=== PATIENT | male | born 1980 | race Caucasian/White ===

== ENCOUNTER 2018-09-22 10:28 | Emergency (ER) | payer BC ==
[2018-09-22 10:34] VITALS: BP 156/101
[2018-09-22] MEDS ORDERED: IBUPROFEN 800 MG TABLET PO ONE (10:47)
--- NOTE | 2018-09-22 10:49 | ER Document Report ---
ED Medical Screen (RME) - General Chief Complaint: Low Back Pain Stated Complaint: BACK INJURY Time Seen by Provider: 09/22/18 10:47 Mode of Arrival: Ambulatory Information source: Patient Notes: Patient was working and a 6 x 6 board was standing on end and fell hitting his lower back. Patient with abrasions to low back area. Patient states he is unable to take any kind of narcotic and is only able to take NSAIDs for pain relief. I have greeted and performed a rapid initial assessment of this patient. A comprehensive ED assessment and evaluation of the patient, analysis of test results and completion of the medical decision making process will be conducted by additional ED providers. TRAVEL OUTSIDE OF THE [place] IN LAST 30 DAYS: No - Related Data Allergies/Adverse Reactions: "narcotics" Adverse Reaction (Uncoded 09/22/18 10:29) vomitting Past Medical History GI Medical History: Reports: Hx Gastroesophageal Reflux Disease Past Surgical History: Reports: Hx Thyroid Surgery - Immunizations Hx Diphtheria, Pertussis, Tetanus Vaccination: Yes Physical Exam - Vital signs Vitals: Temp Pulse Resp BP Pulse Ox 97.6 F 48 L 20 156/101 H 09/22/18 10:31 09/22/18 10:31 09/22/18 10:31 09/22/18 10:31 09/22/18 10:31 - Back Back: Vertebra tenderness - Lumbar midline tenderness, abrasions to lower back Course - Vital Signs Vital signs: Temp Pulse Resp BP Pulse Ox 97.6 F 84 20 156/101 H 09/22/18 10:31 09/22/18 10:35 09/22/18 10:31 09/22/18 10:31 09/22/18 10:31
--- NOTE | 2018-09-22 12:34 | RADIOLOGY REPORT (SQ) ---
EXAM DESCRIPTION: L SPINE WHOLE COMPLETED DATE/TIME: 09/22/2018 11:54 am REASON FOR STUDY: board fell on low back COMPARISON: None. NUMBER OF VIEWS: Five views including obliques. TECHNIQUE: AP, lateral, oblique, and sacral radiographic images acquired of the lumbar spine. LIMITATIONS: None. FINDINGS: MINERALIZATION: Normal. SEGMENTATION: Normal. No transitional anatomy. ALIGNMENT: Normal. VERTEBRAE: Maintained height. No fracture or worrisome bone lesion. DISCS: Very mild disc space loss height at L4-5 and L5-S1 POSTERIOR ELEMENTS: Bilateral facet arthropathy at L4-5 and L5-S1 HARDWARE: None in the spine. PARASPINAL SOFT TISSUES: Normal. PELVIS: SI joints intact OTHER: No other significant finding. IMPRESSION: No acute fracture or malalignment. Lower lumbar degenerative changes TECHNICAL DOCUMENTATION: JOB ID: [id number] [employer]- All Rights Reserved Reading location - IP/workstation name: [email or web address]
[2018-09-22] MEDS ORDERED: CYCLOBENZAPRINE HCL 10 MG TABLET PO ONE (12:50)
--- NOTE | 2018-09-22 13:00 | ER Document Report ---
ED General - General Chief Complaint: Low Back Pain Stated Complaint: BACK INJURY Time Seen by Provider: 09/22/18 10:47 Mode of Arrival: Ambulatory Notes: Patient is a 38-year-old male with a history of PTSD who presents to the emergency department with a lower back injury. Patient states he was helping build a deck when a 6 x 6 wooden post that was standing upright fell and the top of the post landed on his lower back. Patient states since being in the he has had issues with his lower back was always told nothing was wrong. 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 Patient denies numbness or tingling to the lower extremities. Denies loss of bowel or bladder. Denies blood in the urine. She states the pain is constant and is primarily to the lower back in the right lower back. States he did not take any medication prior to coming to the emergency department. States the lower back pain does not radiate down the legs. TRAVEL OUTSIDE OF THE [place] IN LAST 30 DAYS: No - Related Data Allergies/Adverse Reactions: "narcotics" Adverse Reaction (Uncoded 09/22/18 10:29) vomitting Past Medical History - General Information source: Patient - Social History Smoking Status: Never Smoker Cigarette use (# per day): No Chew tobacco use (# tins/day): No Smoking Education Provided: No Frequency of alcohol use: None Drug Abuse: None Lives with: Family Family History: Reviewed & Not Pertinent - Past Medical History Cardiac Medical History: Reports: None Pulmonary Medical History: Reports: None EENT Medical History: Reports: None Neurological Medical History: Reports: None Endocrine Medical History: Reports: None Renal/ Medical History: Reports: None Malignancy Medical History: Reports None GI Medical History: Reports: Hx Gastroesophageal Reflux Disease Musculoskeletal Medical History: Reports None Skin Medical History: Reports None Psychiatric Medical History: Reports: Hx Post Traumatic Stress Disorder Traumatic Medical History: Reports: None Infectious Medical History: Reports: None Past Surgical History: Reports: Hx Thyroid Surgery - Immunizations Hx Diphtheria, Pertussis, Tetanus Vaccination: Yes Review of Systems - Review of Systems Constitutional: No symptoms reported EENT: No symptoms reported Cardiovascular: No symptoms reported Respiratory: No symptoms reported Gastrointestinal: No symptoms reported Genitourinary: No symptoms reported Musculoskeletal: See HPI Skin: No symptoms reported Hematologic/Lymphatic: No symptoms reported Neurological/Psychological: No symptoms reported Physical Exam - Vital signs Vitals: Temp Pulse Resp BP Pulse Ox 97.6 F 48 L 20 156/101 H 95 09/22/18 10:31 09/22/18 10:31 09/22/18 10:31 09/22/18 10:31 09/22/18 10:31 Interpretation: Hypertensive, Bradycardic - Notes Notes: GENERAL: Well-appearing, well-nourished and in no acute distress. HEAD: Atraumatic, normocephalic. EYES: Pupils equal round and reactive to light, extraocular movements intact, sclera anicteric, conjunctiva are normal. ENT: TMs normal, nares patent, oropharynx clear without exudates. Moist mucous membranes. NECK: Normal range of motion, supple without lymphadenopathy or JVD. LUNGS: Breath sounds clear to auscultation bilaterally and equal. No wheezes rales or rhonchi. HEART: Regular rate and rhythm without murmurs, rubs or gallops. ABDOMEN: Soft, nontender, normoactive bowel sounds. No guarding, no rebound. No masses appreciated. BACK: No cervical or thoracic tenderness. + lumbar midline tenderness and right paraspinal tenderness with palpation. No saddle anesthesia, normal distal neurovascular exam. There is an abrasion to the left lower back. There is an in present of what is described as the 6 x 6 wooden post on the right lower back. There is no ecchymosis or edema. GENITOURINARY: Deferred. EXTREMITIES: Normal range of motion, no pitting or edema. No clubbing or cyanosis. NEUROLOGICAL: Cranial nerves II through XII grossly intact. Normal speech, normal gait. PSYCH: Normal mood, normal affect. SKIN: Warm, Dry, normal turgor, no rashes or lesions noted. Course - Re-evaluation Re-evalutation: 09/22/18 14:04 Patient's urine specimen is not back yet. Patient states that he is ready to go. Patient states he is feeling sore but his pain has slightly improved. There is no increased edema or ecchymosis noted to the back. Patient placed on strict return precautions to include numbness or tingling to lower extremities, loss of bowel or bladder, inability to urinate, fever or any other concerning signs or symptoms. - Vital Signs Vital signs: Temp Pulse Resp BP Pulse Ox 97.6 F 84 20 156/101 H 95 0709/19 10:31 09/22/18 10:35 09/22/18 10:31 09/22/18 10:31 09/22/18 10:31 - Laboratory Laboratory results interpreted by me: 09/22/18 11:30 Urine Blood SMALL H Did have a small amount of blood in the urine but only 1 red blood cell. - Diagnostic Test Radiology reviewed: Reports reviewed Radiology results interpreted by me: 09/22/18 12:58 Patient lumbar spine x-ray shows very mild disc space loss height at L4 and L5 and L5 and S1. There is bilateral facet arthropathy at L4-L5 and L5-S1. There is normal alignment. The vertebrae has been maintained height with no fracture or worrisome bone lesion. The SI joints are intact. The paraspinal soft tissues are normal. The x-ray was read as no acute fracture or malalignment. There was lower lumbar degenerative changes. I did make patient aware of the x- ray findings. Patient states he had already urinated and his specimen was sent to lab. Will add on a urinalysis to check for hematuria as the in front of the wooden board is right underneath the right flank area. Patient states that the ibuprofen has seemed to help with his discomfort. Patient states he does have the Profen at home. Patient states he is also has taken Flexeril in the past with some relief. Will give patient a dose of Flexeril. I do expect the patient to be discharged. Discharge - Discharge Clinical Impression: Low back pain Qualifiers: Chronicity: acute Back pain laterality: midline Sciatica presence: without sciatica Qualified Code(s): M54.5 - Low back pain Condition: Stable Disposition: HOME, SELF-CARE Additional Instructions: Today you were seen in the emergency department for low back pain after injury. The x-ray of the lower back did show degenerative changes with no misalignment of the spine or acute fracture. Please continue to use muscle relaxers and anti-inflammatories over the next few days. Do not drive while on the muscle relaxers. You may use an ice pack initially for the first 2 days and then switch to heat. Please return to the emergency department or seek medical care if you have numbness or tingling that radiates down your legs, inability to urinate, loss of bowel or bladder function or numbness around the groin or rectal area. Low Back Pain Three out of every four people will have an episode of disabling back pain during their lifetime. Most commonly the pain is due to straining of the muscles and ligaments in the low back. Usual treatment includes: (1) Rest on a firm surface. Avoid lying on your stomach. (2) Ice pack the painful area. After a few days, gentle heat may be used intermittently to relax the area, or ice packs can be continued. (3) Medication may be needed -- muscle relaxers and antiinflammatory medicines are commonly used. (4) As the back improves, exercises are prescribed to strengthen the back and abdominal muscles. Your doctor will advise you on the proper care for your back at each stage in your recovery. You may be better in a few days -- or healing may take several weeks. If new symptoms of a "herniated disc" (radiation of pain, numbness, or tingling down the back of the leg or weakness in the leg) occur, you should be re-examined. Further testing may be necessary. Muscle Relaxers Muscle relaxing medications are usually prescribed for acute muscle spasm or injury to the neck and back. They are often combined with antiinflammatory pain medication for increased relief. You may stop the muscle relaxer when the pain and stiffness have improved. Start the medication again if spasms recur. Muscle relaxers may cause drowsiness, especially with the first dose. Do not operate machinery or drive while under the effects of the medication. Most muscle relaxers last up to 24 hours. Do not combine the medication with alcohol. Muscle Strain You have strained a muscle -- torn the fibers within the muscle. This often occurs with strenuous exertion, or during an injury that suddenly stretches the muscle. The seriousness of a strain varies. Some strains heal within days, others cause problems for months. X-rays cannot show a muscle strain. X-rays are taken only if symptoms suggest that a fracture could be present. The usual treatment of a muscle strain is rest and ice packs. Sometimes, a sling, splint, or crutches may be necessary to rest the muscle. The muscle can be used again once pain subsides. Severe strains require a special exercise and stretching program to prevent permanent stiffness and disability. Your doctor will advise you if this will be necessary. Call the doctor immediately if pain or swelling becomes severe, or if numbness or discoloration develop. Prescriptions: Cyclobenzaprine HCl [Flexeril 10 mg Tablet] 10 mg PO TID #10 tab Forms: Return to Work
[2018-09-22 14:16] LABS: APPEARANCE,URINE CLEAR; BILIRUBIN,URINE NEGATIVE (NEGATIVE); COLOR,URINE YELLOW; GLUCOSE, URINE NEGATIVE (NEGATIVE); KETONES,URINE NEGATIVE (NEGATIVE); URINE SPECIFIC GRAVITY 1.025
[2018-09-22 14:17] LABS: LEUKOCYTE ESTERASE,URINE NEGATIVE (NEGATIVE); NITRITE,URINE NEGATIVE (NEGATIVE); PROTEIN,URINE NEGATIVE (NEGATIVE); UROBILINOGEN,URINE NEGATIVE mg/dL (<2.0)
== END 2018-09-22 14:07 | disposition home or self-care (01) ==
LOC: ER 10:28
DX: M54.5 Low back pain (principal); W22.8XXA Striking against or struck by other objects, initial encounter
CPT/HCPCS: 72110; 81001; 99283